=== PATIENT | male | born 1960 | race Caucasian/White ===

== ENCOUNTER 2021-08-22 11:48 | Inpatient (IN) | payer OTHER ==
[2021-08-22] MEDS ORDERED: MAGNESIUM HYDROX 2400MG/30ML ORAL SUSPENSION 30 ML CUP PO PRN (13:17)
[2021-08-22] MEDS ORDERED: P-EPHED 60MG/TRIPROLIDI 2.5MG TABLET PO PRN (13:17)
[2021-08-22] MEDS ORDERED: MAGNESIUM CITRATE 300 ML BOTTLE PO PRN (13:17)
[2021-08-22] MEDS ORDERED: ACETAMINOPHEN 325 MG TABLET (FP) PO PRN (13:17)
[2021-08-22] MEDS ORDERED: LOPERAMIDE HCL 2 MG CAPSULE PO PRN (13:17)
[2021-08-22] MEDS ORDERED: guaiFENesin 200 MG/10 ML 10 ML UNIT-DOSE CUPS PO PRN (13:17)
[2021-08-22] MEDS ORDERED: NICOTINE 10 MG CARTRIDGE (INHALER) IH PRN (13:17)
[2021-08-22 13:34] VITALS: BMI 23.3
[2021-08-22] MEDS ORDERED: TUBERCULIN PPD 5 TU/0.1ML VIAL ID ONE (21:59)
[2021-08-22] MEDS: hydrOXYzine PAMOATE 25 MG CAPSULE (FP) PO SCH ×3 (22:00→22:11)
[2021-08-22] MEDS: MELATONIN 5 MG TABLETS PO SCH (22:00)
[2021-08-22] MEDS: THIAMINE HCL 100 MG TABLET (FP) PO SCH (22:00)
[2021-08-23] MEDS: hydrOXYzine PAMOATE 25 MG CAPSULE (FP) PO SCH ×5 (06:06→21:26)
[2021-08-23] MEDS ORDERED: NICOTINE 7 MG/24 HOURS TOPICAL PATCH TD SCH (10:00)
[2021-08-23] MEDS: PRENATAL VITAMINS W/ FOLIC ACID TABLET (FP) PO SCH (10:09)
[2021-08-23 12:25] LABS: HEMATOCRIT 33.7 % (35.4-49); HEMOGLOBIN 11.7 GM/dL (11.7-16.9); MCH 31.1 pg (25.7-33.7); MCHC 34.6 g/dl (32.0-35.9); MEAN PLT VOLUME 8.8 fl (7.5-11.1); PLATELET COUNT 158 10^3/uL (134-434); RBC 3.75 M/mm3 (4.00-5.60); WHITE BLOOD COUNT 6.1 K/mm3 (4.0-10.0)
[2021-08-23 12:28] LABS: CALCIUM 8.7 mg/dL (8.5-10.1)
[2021-08-23 12:29] LABS: ALBUMIN 3.4 g/dl (3.4-5.0); BLOOD UREA NITROGEN 14.4 mg/dL (7-18)
[2021-08-23 12:32] LABS: CREATININE 0.8 mg/dL (0.55-1.3)
[2021-08-23 12:33] LABS: BILIRUBIN,TOTAL 0.8 mg/dL (0.2-1)
[2021-08-23 12:34] LABS: TOT PROT 5.9 g/dl (6.4-8.2)
[2021-08-23 12:51] LABS: SYPHILIS W/ RPR CONF NON-REACTIVE (NONREACTIVE)
[2021-08-23] MEDS: PANTOPRAZOLE 40 MG TABLET PO SCH (14:10)
[2021-08-23 15:21] LABS: PH,URINE 6.5 (5.0-8.0); URINE APPEARANCE CLEAR; URINE BILIRUBIN NEGATIVE (NEGATIVE); URINE COLOR YELLOW; URINE GLUCOSE (UA) NEGATIVE (NEGATIVE); URINE KETONE NEGATIVE (NEGATIVE); URINE LEUK ESTERASE NEGATIVE (NEGATIVE); URINE NITRITE NEGATIVE (NEGATIVE); URINE PROTEIN NEGATIVE (NEGATIVE)
[2021-08-23] MEDS: THIAMINE HCL 100 MG TABLET (FP) PO SCH (21:25)
[2021-08-23] MEDS: traZODone HCL 100 MG TABLET (FP) PO SCH (21:26)
[2021-08-23] MEDS: ATORVASTATIN CA 40 MG TABLET (FP) PO SCH (21:26)
[2021-08-23] MEDS: MELATONIN 5 MG TABLETS PO SCH (21:26)
[2021-08-23] MEDS: GABAPENTIN 100 MG CAPSULE PO SCH (21:26)
[2021-08-23] MEDS ORDERED: OLANZapine 10 MG TABLET PO SCH (22:00)
[2021-08-23] MEDS ORDERED: GABAPENTIN 100 MG CAPSULE PO SCH (22:00)
[2021-08-24] MEDS: hydrOXYzine PAMOATE 25 MG CAPSULE (FP) PO SCH ×5 (06:10→21:21)
[2021-08-24 10:07] LABS: SARS-CoV-2 NAA Not Detected (Not Detected)
[2021-08-24] MEDS: PANTOPRAZOLE 40 MG TABLET PO SCH (10:12)
[2021-08-24] MEDS: LISINOPRIL 5 MG TABLET PO SCH (10:12)
[2021-08-24] MEDS: PRENATAL VITAMINS W/ FOLIC ACID TABLET (FP) PO SCH (10:12)
[2021-08-24] MEDS: GABAPENTIN 100 MG CAPSULE PO SCH ×2 (10:12→21:21)
[2021-08-24] MEDS: IBUPROFEN 400 MG TABLET (FP) PO PRN (11:59)
[2021-08-24] MEDS: traZODone HCL 100 MG TABLET (FP) PO SCH (21:20)
[2021-08-24] MEDS: MELATONIN 5 MG TABLETS PO SCH (21:21)
[2021-08-24] MEDS: THIAMINE HCL 100 MG TABLET (FP) PO SCH (21:21)
[2021-08-24] MEDS: ATORVASTATIN CA 40 MG TABLET (FP) PO SCH (21:23)
[2021-08-25] MEDS: hydrOXYzine PAMOATE 25 MG CAPSULE (FP) PO SCH ×2 (06:11→10:05)
[2021-08-25] MEDS: PANTOPRAZOLE 40 MG TABLET PO SCH (06:11)
[2021-08-25] MEDS: LISINOPRIL 5 MG TABLET PO SCH (10:05)
[2021-08-25] MEDS: PRENATAL VITAMINS W/ FOLIC ACID TABLET (FP) PO SCH (10:05)
[2021-08-25] MEDS: GABAPENTIN 100 MG CAPSULE PO SCH ×2 (10:05→22:03)
[2021-08-25] MEDS ORDERED: hydrOXYzine PAMOATE 25 MG CAPSULE (FP) PO PRN (12:17)
[2021-08-25] MEDS: LIDOCAINE 5% TOPICAL PATCH TP SCH (13:24)
[2021-08-25] MEDS: IBUPROFEN 400 MG TABLET (FP) PO PRN (13:25)
[2021-08-25] MEDS: ATORVASTATIN CA 40 MG TABLET (FP) PO SCH (22:03)
[2021-08-25] MEDS: THIAMINE HCL 100 MG TABLET (FP) PO SCH (22:03)
[2021-08-25] MEDS: traZODone HCL 100 MG TABLET (FP) PO SCH (22:03)
[2021-08-25] MEDS: MELATONIN 5 MG TABLETS PO SCH (22:03)
[2021-08-25] MEDS: LIDOCAINE PATCH REMOVAL MC SCH (22:03)
[2021-08-26] MEDS: PANTOPRAZOLE 40 MG TABLET PO SCH (06:03)
[2021-08-26] MEDS: PRENATAL VITAMINS W/ FOLIC ACID TABLET (FP) PO SCH (09:57)
[2021-08-26] MEDS: LISINOPRIL 5 MG TABLET PO SCH (09:57)
[2021-08-26] MEDS: GABAPENTIN 100 MG CAPSULE PO SCH ×2 (09:57→21:20)
[2021-08-26] MEDS: IBUPROFEN 400 MG TABLET (FP) PO PRN ×2 (10:12→21:22)
[2021-08-26] MEDS: LIDOCAINE 5% TOPICAL PATCH TP SCH (10:13)
[2021-08-26] MEDS: LIDOCAINE PATCH REMOVAL MC SCH (21:20)
[2021-08-26] MEDS: MELATONIN 5 MG TABLETS PO SCH (21:20)
[2021-08-26] MEDS: ATORVASTATIN CA 40 MG TABLET (FP) PO SCH (21:20)
[2021-08-26] MEDS: traZODone HCL 100 MG TABLET (FP) PO SCH (21:20)
[2021-08-26] MEDS: THIAMINE HCL 100 MG TABLET (FP) PO SCH (21:20)
[2021-08-27] MEDS: PANTOPRAZOLE 40 MG TABLET PO SCH (06:07)
[2021-08-27] MEDS: LISINOPRIL 5 MG TABLET PO SCH (10:22)
[2021-08-27] MEDS: GABAPENTIN 100 MG CAPSULE PO SCH ×2 (10:22→21:47)
[2021-08-27] MEDS: LIDOCAINE 5% TOPICAL PATCH TP SCH (10:22)
[2021-08-27] MEDS: PRENATAL VITAMINS W/ FOLIC ACID TABLET (FP) PO SCH (10:22)
[2021-08-27] MEDS: DOCUSATE SODIUM 100 MG CAPSULE (FP) PO SCH ×2 (13:47→21:47)
[2021-08-27] MEDS: ATORVASTATIN CA 40 MG TABLET (FP) PO SCH (21:47)
[2021-08-27] MEDS: THIAMINE HCL 100 MG TABLET (FP) PO SCH (21:47)
[2021-08-27] MEDS: traZODone HCL 100 MG TABLET (FP) PO SCH (21:47)
[2021-08-27] MEDS: MELATONIN 5 MG TABLETS PO SCH (21:48)
[2021-08-27] MEDS: LIDOCAINE PATCH REMOVAL MC SCH (21:48)
[2021-08-28] MEDS: PANTOPRAZOLE 40 MG TABLET PO SCH (05:52)
[2021-08-28] MEDS: DOCUSATE SODIUM 100 MG CAPSULE (FP) PO SCH ×3 (05:52→21:08)
[2021-08-28] MEDS: LIDOCAINE 5% TOPICAL PATCH TP SCH (10:43)
[2021-08-28] MEDS: GABAPENTIN 100 MG CAPSULE PO SCH ×2 (10:44→21:08)
[2021-08-28] MEDS: LISINOPRIL 5 MG TABLET PO SCH (10:44)
[2021-08-28] MEDS: PRENATAL VITAMINS W/ FOLIC ACID TABLET (FP) PO SCH (10:44)
[2021-08-28] MEDS: IBUPROFEN 400 MG TABLET (FP) PO PRN ×2 (12:09→21:16)
[2021-08-28] MEDS: traZODone HCL 100 MG TABLET (FP) PO SCH (21:08)
[2021-08-28] MEDS: MELATONIN 5 MG TABLETS PO SCH (21:08)
[2021-08-28] MEDS: ATORVASTATIN CA 40 MG TABLET (FP) PO SCH (21:08)
[2021-08-28] MEDS: THIAMINE HCL 100 MG TABLET (FP) PO SCH (21:08)
[2021-08-28] MEDS: LIDOCAINE PATCH REMOVAL MC SCH (21:09)
[2021-08-29] MEDS: PANTOPRAZOLE 40 MG TABLET PO SCH (05:41)
[2021-08-29] MEDS: DOCUSATE SODIUM 100 MG CAPSULE (FP) PO SCH ×3 (05:41→21:32)
[2021-08-29] MEDS: LIDOCAINE 5% TOPICAL PATCH TP SCH (10:45)
[2021-08-29] MEDS: GABAPENTIN 100 MG CAPSULE PO SCH ×2 (10:48→21:32)
[2021-08-29] MEDS: LISINOPRIL 5 MG TABLET PO SCH (10:48)
[2021-08-29] MEDS: PRENATAL VITAMINS W/ FOLIC ACID TABLET (FP) PO SCH (10:48)
[2021-08-29] MEDS: IBUPROFEN 400 MG TABLET (FP) PO PRN (12:19)
[2021-08-29] MEDS: traZODone HCL 100 MG TABLET (FP) PO SCH (21:32)
[2021-08-29] MEDS: LIDOCAINE PATCH REMOVAL MC SCH (21:33)
[2021-08-29] MEDS: ATORVASTATIN CA 40 MG TABLET (FP) PO SCH (21:33)
[2021-08-29] MEDS: MELATONIN 5 MG TABLETS PO SCH (21:33)
[2021-08-29] MEDS: THIAMINE HCL 100 MG TABLET (FP) PO SCH (21:33)
[2021-08-30] MEDS: DOCUSATE SODIUM 100 MG CAPSULE (FP) PO SCH ×3 (05:56→21:10)
[2021-08-30] MEDS: PANTOPRAZOLE 40 MG TABLET PO SCH (05:56)
[2021-08-30] MEDS: GABAPENTIN 100 MG CAPSULE PO SCH ×2 (10:18→21:10)
[2021-08-30] MEDS: LISINOPRIL 5 MG TABLET PO SCH (10:18)
[2021-08-30] MEDS: PRENATAL VITAMINS W/ FOLIC ACID TABLET (FP) PO SCH (10:18)
[2021-08-30] MEDS: LIDOCAINE 5% TOPICAL PATCH TP SCH (10:19)
[2021-08-30] MEDS: MAG HYDROX/AL HYDROX/SIMETH 30 ML UNIT-DOSE CUP PO PRN (15:57)
[2021-08-30] MEDS: THIAMINE HCL 100 MG TABLET (FP) PO SCH (21:10)
[2021-08-30] MEDS: ATORVASTATIN CA 40 MG TABLET (FP) PO SCH (21:10)
[2021-08-30] MEDS: MELATONIN 5 MG TABLETS PO SCH (21:10)
[2021-08-30] MEDS: traZODone HCL 100 MG TABLET (FP) PO SCH (21:10)
[2021-08-30] MEDS: LIDOCAINE PATCH REMOVAL MC SCH (21:11)
[2021-08-31] MEDS: PANTOPRAZOLE 40 MG TABLET PO SCH (06:02)
[2021-08-31] MEDS: DOCUSATE SODIUM 100 MG CAPSULE (FP) PO SCH ×3 (06:02→21:36)
[2021-08-31] MEDS: PRENATAL VITAMINS W/ FOLIC ACID TABLET (FP) PO SCH (10:06)
[2021-08-31] MEDS: LIDOCAINE 5% TOPICAL PATCH TP SCH (10:07)
[2021-08-31] MEDS: LISINOPRIL 5 MG TABLET PO SCH (10:07)
[2021-08-31] MEDS: THIAMINE HCL 100 MG TABLET (FP) PO SCH (21:35)
[2021-08-31] MEDS: traZODone HCL 100 MG TABLET (FP) PO SCH (21:36)
[2021-08-31] MEDS: ATORVASTATIN CA 40 MG TABLET (FP) PO SCH (21:36)
[2021-08-31] MEDS: MELATONIN 5 MG TABLETS PO SCH (21:36)
[2021-08-31] MEDS: LIDOCAINE PATCH REMOVAL MC SCH (21:36)
[2021-09-01] MEDS: PANTOPRAZOLE 40 MG TABLET PO SCH (06:10)
[2021-09-01] MEDS: DOCUSATE SODIUM 100 MG CAPSULE (FP) PO SCH ×3 (06:10→21:17)
[2021-09-01] MEDS: MAG HYDROX/AL HYDROX/SIMETH 30 ML UNIT-DOSE CUP PO PRN (06:12)
[2021-09-01] MEDS: PRENATAL VITAMINS W/ FOLIC ACID TABLET (FP) PO SCH (10:07)
[2021-09-01] MEDS: LISINOPRIL 5 MG TABLET PO SCH (10:07)
[2021-09-01] MEDS: LIDOCAINE 5% TOPICAL PATCH TP SCH (10:07)
[2021-09-01] MEDS: IBUPROFEN 400 MG TABLET (FP) PO PRN (10:45)
[2021-09-01] MEDS: THIAMINE HCL 100 MG TABLET (FP) PO SCH (21:17)
[2021-09-01] MEDS: LIDOCAINE PATCH REMOVAL MC SCH (21:17)
[2021-09-01] MEDS: MELATONIN 5 MG TABLETS PO SCH (21:17)
[2021-09-01] MEDS: traZODone HCL 100 MG TABLET (FP) PO SCH (21:17)
[2021-09-01] MEDS: ATORVASTATIN CA 40 MG TABLET (FP) PO SCH (21:17)
[2021-09-02] MEDS: PANTOPRAZOLE 40 MG TABLET PO SCH (06:02)
[2021-09-02] MEDS: DOCUSATE SODIUM 100 MG CAPSULE (FP) PO SCH ×3 (06:28→21:09)
[2021-09-02] MEDS: LISINOPRIL 5 MG TABLET PO SCH (09:52)
[2021-09-02] MEDS: PRENATAL VITAMINS W/ FOLIC ACID TABLET (FP) PO SCH (09:52)
[2021-09-02] MEDS: LIDOCAINE 5% TOPICAL PATCH TP SCH (09:52)
[2021-09-02] MEDS: IBUPROFEN 400 MG TABLET (FP) PO PRN (10:28)
[2021-09-02] MEDS: MELATONIN 5 MG TABLETS PO SCH (21:09)
[2021-09-02] MEDS: ATORVASTATIN CA 40 MG TABLET (FP) PO SCH (21:09)
[2021-09-02] MEDS: THIAMINE HCL 100 MG TABLET (FP) PO SCH (21:09)
[2021-09-02] MEDS: traZODone HCL 100 MG TABLET (FP) PO SCH (21:09)
[2021-09-02] MEDS: LIDOCAINE PATCH REMOVAL MC SCH (21:10)
[2021-09-03] MEDS: PANTOPRAZOLE 40 MG TABLET PO SCH (06:15)
[2021-09-03] MEDS: DOCUSATE SODIUM 100 MG CAPSULE (FP) PO SCH ×3 (06:15→21:40)
[2021-09-03] MEDS: LIDOCAINE 5% TOPICAL PATCH TP SCH (10:23)
[2021-09-03] MEDS: LISINOPRIL 5 MG TABLET PO SCH (10:23)
[2021-09-03] MEDS: PRENATAL VITAMINS W/ FOLIC ACID TABLET (FP) PO SCH (10:23)
[2021-09-03] MEDS: IBUPROFEN 400 MG TABLET (FP) PO PRN ×2 (12:07→21:44)
[2021-09-03] MEDS: traZODone HCL 100 MG TABLET (FP) PO SCH (21:40)
[2021-09-03] MEDS: ATORVASTATIN CA 40 MG TABLET (FP) PO SCH (21:40)
[2021-09-03] MEDS: LIDOCAINE PATCH REMOVAL MC SCH (21:41)
[2021-09-03] MEDS: THIAMINE HCL 100 MG TABLET (FP) PO SCH (21:41)
[2021-09-03] MEDS: MELATONIN 5 MG TABLETS PO SCH (21:41)
[2021-09-04] MEDS: DOCUSATE SODIUM 100 MG CAPSULE (FP) PO SCH ×3 (06:39→21:03)
[2021-09-04] MEDS: PANTOPRAZOLE 40 MG TABLET PO SCH (06:39)
[2021-09-04 07:22] VITALS: TEMP 98.6
[2021-09-04] MEDS: LISINOPRIL 5 MG TABLET PO SCH (09:43)
[2021-09-04] MEDS: IBUPROFEN 400 MG TABLET (FP) PO PRN ×2 (09:43→16:24)
[2021-09-04] MEDS: PRENATAL VITAMINS W/ FOLIC ACID TABLET (FP) PO SCH (09:43)
[2021-09-04] MEDS: LIDOCAINE 5% TOPICAL PATCH TP SCH (09:44)
[2021-09-04] MEDS: traZODone HCL 100 MG TABLET (FP) PO SCH (21:03)
[2021-09-04] MEDS: LIDOCAINE PATCH REMOVAL MC SCH (21:03)
[2021-09-04] MEDS: ATORVASTATIN CA 40 MG TABLET (FP) PO SCH (21:03)
[2021-09-04] MEDS: THIAMINE HCL 100 MG TABLET (FP) PO SCH (21:03)
[2021-09-04] MEDS: MELATONIN 5 MG TABLETS PO SCH (21:04)
[2021-09-05] MEDS: PANTOPRAZOLE 40 MG TABLET PO SCH (05:44)
[2021-09-05] MEDS: DOCUSATE SODIUM 100 MG CAPSULE (FP) PO SCH (05:44)
[2021-09-05] MEDS: IBUPROFEN 400 MG TABLET (FP) PO PRN (06:18)
[2021-09-05 06:37] VITALS: BP 132/82; PULSE 88
== END 2021-09-05 09:10 | disposition home or self-care (01) | DRG 895 ==
LOC: YASAS 11:48 → Y3W 20:25
PROVIDERS: ADMIT Allergy & Immunology; ATTEND Allergy & Immunology
PROC: HZ42ZZZ Group Counseling for Substance Abuse Treatment, Cognitive-Behavioral (ICD-10-PCS; principal; 2021-08-22)
DX: F10.20 Alcohol dependence, uncomplicated (principal); F10.282 Alcohol dependence with alcohol-induced sleep disorder; F10.280 Alcohol dependence with alcohol-induced anxiety disorder; F25.9 Schizoaffective disorder, unspecified; I10 Essential (primary) hypertension; E78.5 Hyperlipidemia, unspecified; K21.9 Gastro-esophageal reflux disease without esophagitis; M54.50 Low back pain, unspecified; R07.89 Other chest pain; Z88.8 Allergy status to other drugs, medicaments and biological substances; Z56.0 Unemployment, unspecified
CPT/HCPCS: 36415; 80053; 81003; 85027; 86780; 86803; 93005; 93010; C9803-CS; U0003; U0005